=== PATIENT | male | born 1995 | race Hispanic/Latino ===

== ENCOUNTER 2018-06-30 05:22 | Emergency (ER) | payer OTHER, SELFPAY ==
[~2018-06-30] VITALS: Ht 172.7 cm; Wt 63.6 kg
[2018-06-30 05:22] VITALS: BP 101/60
[2018-06-30] MEDS ORDERED: ONDANSETRON 4 MG ORAL DISINTEGRATING TAB (Q0162 PER 1MG) PO ONE (07:00)
[2018-06-30] MEDS ORDERED: ZOFR4TAB16 PO (08:15)
== END 2018-06-30 08:39 | disposition home or self-care (01) ==
LOC: M ED 05:22
DX: R11.2 Nausea with vomiting, unspecified (principal); Z90.89 Acquired absence of other organs
CPT/HCPCS: 99282; Q0162

== ENCOUNTER 2021-01-17 19:49 | Emergency (ER) | payer OTHER ==
[~2021-01-17] VITALS: Ht 172.7 cm; Wt 69.5 kg
[~2021-01-17 19:49] MED LIST: ZOFR4TAB16 PO
[2021-01-17 19:50] VITALS: BP 104/56
--- OUTSIDE RECORDS SUMMARY | 2021-01-17 20:11 | CCD ---
Author Author [facility] Organization [facility] Address Unknown Phone Unavailable Support Name Relationship Address Phone Jefry GUZMAN Next Of Kin [address] [place] [address] [facility] Next Of Kin [address] [place] [address] Unavailable Re-disclosure Warning The records that you are about to access may contain information from federally-assisted alcohol or drug abuse programs. If such information is present, then the following federally mandated warning applies: This information has been disclosed to you from records protected by federal confidentiality rules (42 CFR part 2). The federal rules prohibit you from making any further disclosure of this information unless further disclosure is expressly permitted by the written consent of the person to whom it pertains or as otherwise permitted by 42 CFR part 2. A general authorization for the release of medical or other information is NOT sufficient for this purpose. The Federal rules restrict any use of the information to criminally investigate or prosecute any alcohol or drug abuse patient.The records that you are about to access may contain highly sensitive health information, the redisclosure of which is protected by Article 27-F of the [facility] Public Health law. If you continue you may have access to information: Regarding HIV / AIDS; Provided by facilities licensed or operated by the [facility] Office of Mental Health; or Provided by the [facility] Office for People With Developmental Disabilities. If such information is present, then the following [facility] mandated warning applies: This information has been disclosed to you from confidential records which are protected by state law. State law prohibits you from making any further disclosure of this information without the specific written consent of the person to whom it pertains, or as otherwise permitted by law. Any unauthorized further disclosure in violation of state law may result in a fine or nursing home sentence or both. A general authorization for the release of medical or other information is NOT sufficient authorization for further disc losure. Medications No Information Insurance Providers Payer name Policy type / Coverage type Policy ID Covered republican ID Covered republican's relationship to de la paz Policy [place] Plan Information [facility] [id number] 400 [facility] [id number] 18 [id number] [facility] [id number] SELF PAY ONLY [id number] Problems, Conditions, and Diagnoses No Information Surgeries/Procedures No Information Results No Information Social History No Information
[2021-01-17] MEDS ORDERED: CEPH500C PO (20:24)
[2021-01-17] MEDS ORDERED: CEPHALEXIN 500 MG CAP PO ONE (20:25)
--- OUTSIDE RECORDS SUMMARY | 2021-01-17 20:35 | CCD ---
Author Author [facility] Organization [facility] Address Unknown Phone Unavailable Support Name Relationship Address Phone UE Next Of Kin Unknown Unavailable GUZMANJefry JONES EDY Next Of Kin [address] [place], [place] [id number] [facility] Next Of Kin [address] [place] [address] Unavailable Re-disclosure Warning The records that you [...] is protected by Article 27-F of the [facility] Public Health law. If you continue you may have access to information: Regarding HIV / AIDS; Provided by facilities licensed or operated by the [facility] Office of Mental Health; or Provided by the [facility] Office for People With Developmental Disabilities. If such information is present, then the following [facility] mandated warning applies: This information has [...] law may result in a fine or care home sentence or both. A general authorization for the release of medical or other information is NOT sufficient authorization for further disc losure. Medications No Information Insurance Providers Payer name Policy type / Coverage type Policy ID Covered green party ID Covered green party's relationship to de la paz Policy [place] Plan Information [place] [id number] [facility] [id number] 400 [facility] [id number] [facility] [id number] SELF PAY ONLY [id number] Problems, Conditions, and Diagnoses No Information Surgeries/Procedures No Information Results No Information Social History No Information
== END 2021-01-17 20:56 | disposition home or self-care (01) ==
LOC: M ED 19:49
DX: L03.313 Cellulitis of chest wall (principal)